=== PATIENT | male | born 1965 | race Caucasian/White ===

== ENCOUNTER 2023-10-29 06:21 | Day surgery (SDC) | payer OTHER, SELFPAY ==
[2023-10-28 07:42] VITALS: BMI 27.1
[2023-10-29] VITALS (10 sets, daily range): BP systolic 116–151; BP diastolic 72–106; BMI 27.1
[2023-10-29] MEDS: NORMOSOL-R 1000 IV (08:00)
[2023-10-29] MEDS: TYLENOL 1000 MG PO (08:02)
[2023-10-29] MEDS: CELEBREX 200 MG PO (08:03)
--- NOTE | 2023-10-29 10:42 | CON.CAR ---
Addendum entered and electronically signed by Dillon Batista MD 10/29/23 11:52:
I saw and examined the patient.
The LIVESTOCK FARM MANAGER or PA's note was reviewed and I agree with the note.
Comment: General: Well developed, well nourished in NAD.
Neck: Supple, no JVD, HJR, carotids +2 B/L, no bruits bilaterally.
Heart: Non displaced PMI, RRR, no murmurs, No S3, S4, no rubs.
Lungs: Clear to auscultation bilaterally, no wheeze, rhonchi, rubs bilaterally,
normal expiratory phase.
Extremities: No clubbing, cyanosis or edema bilaterally.
Neuro: Grossly nonfocal, awake, alert and oriented x3.
Roel has a history of hyperlipidemia. Cardiology is consulted for bradycardia and heart block seen in the OR during meniscus surgery earlier today. He was given atropine in the OR. He denies chest pain or shortness of breath. He remains very
active as an outpatient riding [employer] several days a week. Reviewed strips. Appears to be 2 1 block with A-V dissociation but stable junctional escape rhythm.
Stable cardiology status for discharge. Will arrange outpatient echo and monitor but likely no treatment is needed. He likely has high vagal tone because of good exercise and this may have been worsened in the setting of sedation in the OR.
Original Note:
Consultation
Consultation Request
Date/Time Consultation Performed: 10/29/23
Requesting Provider: Dr. Gutierrez
Performing Provider: Sallie Wesley PA-C for Dr. Henry
Reason for Consultation: 2:1 heart block
Medical History
-
Chief Complaint: 2:1 heart block
History of Present Illness:
Patient is a 58-year-old male with history of hyperlipidemia, prior knee surgeries who presented for left meniscus repair by Dr. Appiah today. During case patient was noted to go into 2:1 av block. With this his SBP dropped into 60s. He required 0.2
of atropine with improvement. Currently BP/HR stable in PACU. He states he is active at home walking, riging his bike. He has never had issues with dizziness/presyncope/syncope. Denies known thyroid issues. Denies family history of conduction
disease to his knowledge. He is not on av olga blocking agents as OP. He did not have issues like this with his prior knee surgeries. Per PACU staff, no medications given immediately prior to drop in HR. Cardiology consulted for evaluation
PMH:
HLD
prior knee surgeries
Past Medical History
Past Medical History: Other (in HPI)
Social History
Tobacco: Non-Smoker
Alcohol: Occasional
Personal:
Living: With Family
Employment: Employed
Family History
Family History: Reviewed & Not Pertinent
Allergies / Home Medications
Allergy/AdvReac Type Severity Reaction Status Date / Time
levofloxacin [From Levaquin] Allergy Severe Anaphylaxis Verified 10/29/23 08:01
�Medication �Instructions �Recorded �Confirmed �Type
Multivitamin: 1 tab PO DAILY 01/04/20 10/29/23 History
Neihart 3 200 mg PO DAILY 10/26/23 10/29/23 History
coenzyme Q10 100 mg capsule 100 mg PO DAILY 10/26/23 10/29/23 History
rosuvastatin 5 mg tablet 5 mg PO DAILY 10/26/23 10/29/23 History
Review of Systems
-
History Source: Patient
All other systems: Negative unless noted
Physical Exam
Vital Signs
Temp Pulse Resp BP Pulse Ox
99 F 79 16 151/106 98
10/29/23 07:54 10/29/23 07:54 10/29/23 07:54 10/29/23 07:54 10/29/23 07:54
Physical Exam
General: No Apparent Distress, Comfortable and Other (on supp O2)
HEENT: Normocephalic, Anicteric and Moist Mucous Membranes
Respiratory: Clear and Non Labored Respirations
Cardiac: S1/S2 and Regular Rhythm
GI: Soft, Non Tender and Non Distended
Musculoskeletal: No Clubbing, No Cyanosis and No Edema
Skin: Warm and Dry
Neuro: AO x 3
Impression / Plan
-
Primary Research Professor: none
Assessment:
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
Transient 2:1 AV block with associated hypotension requiring atropine in OR
HLD
prior knee surgeries
Plan:
-Patient underwent left meniscus repair surgery. During case, was noted to have 2-1 AV block with associated hypotension, reportedly SBP in 60s, requiring 0.2mg of atropine with subsequent improvement. Cardiology consulted for evaluation.
-Preop EKG 10/28/23 SR with 1st degree av block. repeat today in PACU
-currently in SR
-BP stable
-check BMP, TSH
-consider check echo
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
-d/w PACU nursing
Data Reviewed
-
EKG: Tracing Personally Visualized and interpreted
Labs: Labs Reviewed by me
Old Records: Reviewed
--- NOTE | 2023-10-29 11:36 | SUR.PHASEI ---
Patient with heart su intra-op, stable post op, no further bradycardia. pateint seen by Dr Hooks and PA. Patient seen by DR Gutierrez,cleared for D/c to [facility]. Report to [facility], cardiac status discussed. Khloe Paredes AUTOMOBILE BODY CUSTOMIZER.
[2023-10-29 12:32] LABS: Blood Urea Nitrogen 23 mg/dl (9-20); Carbon Dioxide 27 mmol/L (22-30); Chloride 102 mmol/L (98-107); Estimated Creatinine Clearance 109 ml/min; Glucose 146 mg/dl (70-99); Potassium 4.6 mmol/L (3.5-5.1); Sodium 132 mmol/L (135-145); eGFR > 60.00
== END 2023-10-29 13:29 | disposition home or self-care (01) ==
LOC: SDS 06:21
PROVIDERS: Physician Assistant; ATTENDING PHYSICIAN Specialist; CONSULT PHYSICIAN Internal Medicine Cardiovascular Disease; FAMILY PHYSICIAN Family Medicine
DX: S83.232A Complex tear of medial meniscus, current injury, left knee, initial encounter (principal); S83.282A Other tear of lateral meniscus, current injury, left knee, initial encounter; M94.262 Chondromalacia, left knee; X58.XXXA Exposure to other specified factors, initial encounter
CPT/HCPCS: 29880; 36415; 80048; 84443; 93005

== ENCOUNTER → 2023-11-08 07:38 | Outpatient (REF) | payer OTHER, SELFPAY | LOC: DHCBS MAIN 07:38 | PROVIDERS: ATTENDING PHYSICIAN Internal Medicine Cardiovascular Disease; FAMILY PHYSICIAN Family Medicine | DX: I44.1 Atrioventricular block, second degree (principal); I95.9 Hypotension, unspecified | CPT/HCPCS: 93306 ==